=== PATIENT | female | born 1970 | race Two or more races ===

== ENCOUNTER → 2016-10-04 | Outpatient (CLI) | payer BC ==
[2016-10-04 14:18] LABS: CHLORIDE,CL 105 mmol/L (98-110); SODIUM,NA 139 mmol/L (136-146)
== END ==
LOC: MW.CHFP 13:36
PROVIDERS: ATTEND Physician Assistant
DX: R53.83 Other fatigue (principal); E11.9 Type 2 diabetes mellitus without complications
CPT/HCPCS: 36415; 80048; 80061; 82044; 83036; 84443

== ENCOUNTER → 2016-10-11 | Outpatient (CLI) | payer BC | LOC: MW.CHFP 14:50 | PROVIDERS: ATTEND Physician Assistant | DX: R50.9 Fever, unspecified (principal) | CPT/HCPCS: 87804 ==

== ENCOUNTER 2020-05-16 10:51 | Day surgery (SDC) | payer BC ==
[~2020-05-16 10:51] MED LIST: Bupivacaine 0.5% 30 ML SDV ONE; Dexamethasone 4 MG/ML 5 ML MDV ONE; Glycopyrrolate 0.2 MG/ML SDV ONE; Ketorolac 30 MG/ML SDV ONE; Lactated Ringers 1,000 ML IV SCH; Lidocaine 2% 5 ML SDV ONE; Midazolam 1 MG/ML 2 ML SDV ONE; Ondansetron 4 MG/2 ML SDV ONE; Propofol 200 MG/20 ML SDV ONE; Rocuronium Bromide 50 MG/5 ML Syringe ONE; Sodium Chloride 0.9% 20 ML ONE; ceFAZolin 2 GM in Premix Bag 1 BAG IV SCH; fentaNYL 100 MCG/2 ML SDV ONE
--- NOTE | 2020-05-16 11:23 | PCM.PREANE ---
Preanesthetic Assessment - Anesthesia/Transfusion/Family Hx Anesthesia History: Prior Anesthesia Without Reaction Other Type of Anesthesia Reaction Comment: Denies any known problem w/ anesthesia in past, no known fmly hx prblm Family History of Anesthesia Reaction: No Transfusion History: No Prior Transfusion(s) - Review of Systems General: No Symptoms Pulmonary: No Symptoms Cardiovascular: No Symptoms Gastrointestinal: No Symptoms Neurological: No Symptoms Other: Reports: None - Physical Assessment NPO Status Date: 05/15/20 Vital Signs: Last Vital Signs Temp 96.8 F L 05/16/20 10:55 Pulse 79 05/16/20 10:55 Resp 16 05/16/20 10:55 BP 127/74 05/16/20 10:55 Pulse Ox 97 05/16/20 10:55 Height: 5 ft 7 in Weight: 77.111 kg ASA Class: 2 Mental Status: Alert & Oriented x3 Airway Class: Mallampati = 2 Dentition: Reports: Normal Dentition ROM/Head Extension: Full Lungs: Clear to Auscultation, Normal Respiratory Effort Cardiovascular: Regular Rate, Regular Rhythm - Allergies Allergies/Adverse Reactions: Allergies Allergy/AdvReac Type Severity Reaction Status Date / Time No Known Allergies Allergy Verified 05/12/20 09:18 - Blood Blood Available: No - Anesthesia Plan Pre-Op Medication Ordered: None - Acknowledgements Anesthesia Type Planned: General Anesthesia Pt an Appropriate Candidate for the Planned Anesthesia: Yes Alternatives and Risks of Anesthesia Discussed w Pt/Guardian: Yes Pt/Guardian Understands and Agrees with Anesthesia Plan: Yes Additional Comments: PLAN: GET for intraoperative anesthesia, interscalene plexus block for post op pain management PreAnesthesia Questionnaire HEENT History: Reports: Impaired Vision Other HEENT History: wears glasses Cardiovascular History: Reports: None Respiratory History: Reports: None Gastrointestinal History: Reports: Cholelithiasis Genitourinary History: Reports: None Musculoskeletal History: Reports: Fracture Other Musculoskeletal History: right leg Neurological History: Reports: None Psychiatric History: Reports: None Endocrine/Metabolic History: Reports: None Hematologic History: Reports: None Oncologic (Cancer) History: Reports: Breast Other Oncologic History: states it was stage 1 and did not need chemo or radiation Dermatologic History: Reports: None - Infectious Disease History Infectious Disease History: Reports: Chicken Pox Other Infectious Disease History: when a child - Past Surgical History Head Surgeries/Procedures: Reports: None HEENT Surgical History: Reports: None Cardiovascular Surgical History: Reports: None Respiratory Surgical History: Reports: None GI Surgical History: Reports: Cholecystectomy Female Surgical History: Reports: Breast Biopsy, Hysterectomy Neurological Surgical History: Reports: None Other Musculoskeletal Surgeries/Procedures:: ORIF right LE Oncologic Surgical History: Reports: Biopsy of Breast - SUBSTANCE USE Tobacco Use Status *Q: Never Tobacco User - HOME MEDS Home Medications: Home Meds Amitriptyline [Elavil] 25 mg PO BEDTIME PRN 05/12/20 [History] traMADol [Ultram] 1 tab PO ASDIRECTED PRN 05/12/20 [History] - CURRENT (IN HOUSE) MEDS Current Meds: Current Medications Lactated Ringer's (Ringers, Lactated) 1,000 mls @ 100 mls/hr IV ASDIRECTED ALEX Cefazolin Sodium/Dextrose 2 gm (/ Premix) 50 mls @ 100 mls/hr IV ONCALL ALEX Discontinued Medications Bupivacaine HCl (Marcaine 0.5%) Confirm Administered Dose 30 ml .ROUTE .STK-MED ONE Stop: 05/16/20 10:17 Dexamethasone (Dexamethasone) Confirm Administered Dose 20 mg .ROUTE .STK-MED ONE Stop: 05/16/20 10:17 Fentanyl (Sublimaze) Confirm Administered Dose 100 mcg .ROUTE .STK-MED ONE Stop: 05/16/20 10:13 Fentanyl (Sublimaze) Confirm Administered Dose 100 mcg .ROUTE .STK-MED ONE Stop: 05/16/20 10:32 Glycopyrrolate (Robinul) Confirm Administered Dose 0.8 mg .ROUTE .STK-MED ONE Stop: 05/16/20 10:34 Sodium Chloride (Normal Saline) Confirm Administered Dose 20 mls @ as directed .ROUTE .STK-MED ONE Stop: 05/16/20 10:19 Ketorolac Tromethamine (Toradol) Confirm Administered Dose 30 mg .ROUTE .STK-MED ONE Stop: 05/16/20 10:34 Lidocaine (Xylocaine-Mpf 2%) Confirm Administered Dose 5 ml .ROUTE .STK-MED ONE Stop: 05/16/20 10:34 Midazolam HCl (Versed 1 Mg/Ml) Confirm Administered Dose 4 mg .ROUTE .STK-MED ONE Stop: 05/16/20 10:13 Ondansetron HCl (Zofran) Confirm Administered Dose 4 mg .ROUTE .STK-MED ONE Stop: 05/16/20 10:34 Propofol (Diprivan 20 Ml) Confirm Administered Dose 200 mg .ROUTE .STK-MED ONE Stop: 05/16/20 10:32 Rocuronium [place] (Rocuronium [place]) Confirm Administered Dose 50 mg .ROUTE .STK-MED ONE Stop: 05/16/20 10:34
[2020-05-16] MEDS ORDERED: Phenylephrine 1% 10 MG/ML SDV ONE (12:25)
[2020-05-16] MEDS ORDERED: Sodium Chloride 0.9% 20 ML ONE (12:28)
[2020-05-16] MEDS ORDERED: ceFAZolin 1 GM Vial ONE (12:28)
[2020-05-16] MEDS ORDERED: fentaNYL 100 MCG/2 ML SDV ONE (12:45)
[2020-05-16] MEDS ORDERED: Acetaminophen 1,000 MG in Premix Bag 1 BAG IV PRN (12:59)
--- NOTE | 2020-05-16 12:59 | PCM.PRNOTE ---
- Free Text/Narrative Note: Anes Note R ISB for post op pain management. R IS groove identified and prepped with chloroprep. Using ultrasound and Nerve stimulator an excellent bicep twitch down to 0.8 mA was observed. 27 cc 0.5% bupivicaine with 8 mg decadron was slowly and cautiously injected. Patient reports numbness and analgesia r shoulder. A Right sided horrners syndrome was also noted. Time with patient [id number] Narendra Lopez [employer]
[2020-05-16] MEDS ORDERED: Labetalol 100 MG/20 ML MDV ONE (13:04)
[2020-05-16] MEDS ORDERED: Vancomycin 1 GM SDV ONE (14:10)
[2020-05-16] MEDS ORDERED: Sugammadex Sodium 200 MG/2 ML VIAL ONE (14:21)
--- NOTE | 2020-05-16 14:30 | PCM.OPNOTE ---
- General Post-Op/Procedure Note Date of Surgery/Procedure: 05/16/20 Operative Procedure(s): r shoulder arthroscopy. r labral debridement. r shoulder partial bursectomy. open right rotator cuff repair Pre Op Diagnosis: right rotator cuff tear. right shoulder impingement Post-Op Diagnosis: Same Anesthesia Technique: General ET Tube, Regional Block Primary Surgeon: Alfredo Garcia EBL in mLs: 50 Condition: Good
[2020-05-16] MEDS: fentaNYL 100 MCG/2 ML SDV IVPUSH PRN ×2 (14:56→15:04)
--- NOTE | 2020-05-16 15:22 | PCM.POSTAN ---
POST ANESTHESIA ASSESSMENT - MENTAL STATUS Mental Status: Alert, Oriented - VITAL SIGNS Vital Signs: Last Vital Signs Temp 36.0 C L 05/16/20 10:55 Pulse 96 05/16/20 15:13 Resp 16 05/16/20 15:13 BP 146/84 H 05/16/20 15:13 Pulse Ox 95 05/16/20 15:13 - RESPIRATORY Respiratory Status: Respiratory Rate WNL, Airway Patent, O2 Saturation Stable - CARDIOVASCULAR CV Status: Pulse Rate WNL, Blood Pressure Stable - GASTROINTESTINAL GI Status: No Symptoms - PAIN Pain Score: 2 - POST OP HYDRATION Hydration Status: Adequate & Stable - OBSERVATIONS Free Text/Narrative:: The patient tolerated the procedure well. There were no apparent anesthetic complications at this time. Discharge to phase 2 per criteria.
[2020-05-16 16:57] VITALS: BP 127/83
[2020-05-16 17:52] VITALS: PULSE 102
--- NOTE | 2020-05-16 17:52 | PCM48HPAN ---
Post Anesthesia Note - EVALUATION WITHIN 48HRS OF ANESTHETIC Vital Signs in Normal Range: Yes Patient Participated in Evaluation: Yes Respiratory Function Stable: Yes (Some hoarseness due to IS block. Deep breathes and swallows well.) Airway Patent: Yes (Slight hoarseness. No dysphagia.) Cardiovascular Function Stable: Yes Hydration Status Stable: Yes Pain Control Satisfactory: Yes (09/17. Sore) Nausea and Vomiting Control Satisfactory: Yes Mental Status Recovered: Yes (A&O x3) Vital Signs: Last Vital Signs Temp 35.9 C L 05/16/20 15:18 Pulse 104 H 05/16/20 16:48 Resp 16 05/16/20 16:48 BP 127/83 05/16/20 16:48 Pulse Ox 94 L 05/16/20 16:48 - COMMENTS/OBSERVATIONS Free Text/Narrative:: Doing well. VSS. Pain control adequate. Ready for discharge. Instructions given.
--- NOTE | 2020-05-16 21:25 | OR ---
SURGEON: Alfredo Garcia DATE OF PROCEDURE: 05/16/2020 PREOPERATIVE DIAGNOSES: Right shoulder rotator cuff tear and right shoulder impingement. POSTOPERATIVE DIAGNOSES: Right rotator cuff tear, right shoulder impingement, right degenerative labral tear, superior. PROCEDURES: Right shoulder arthroscopy, right labral debridement, right shoulder partial bursectomy, and open right rotator cuff repair. PRIMARY SURGEON: Alfredo Garcia DO ANESTHESIA: General endotracheal intubation plus regional block. FLUID: Lactated Ringer solution. ESTIMATED BLOOD LOSS: 50 mL. COMPLICATION: None. SPECIMEN: None. DISCHARGE DISPOSITION: Stable to PACU. HISTORY AND INDICATIONS FOR THE PROCEDURE: The patient was seen preoperatively by me in the clinic. She had nonoperative treatment with physical therapy. She had felt a pop in her right shoulder. Preoperative imaging confirmed the above-mentioned diagnosis. Risks and goals of the procedure were explained to the patient. Informed consent was obtained. DETAILS OF THE PROCEDURE: The patient was seen preoperatively by me and the anesthesia staff in the preoperative holding area. The operative site was marked. She was brought to the operative suite by anesthesia staff after performing a regional block. She was given general anesthesia. She was placed into a beach chair position. All extremities were found to be well padded. The neck was flexed and turned slightly to the left. The patient's right upper extremity was then prepped and draped in a sterile manner. Time-out was called, identifying the correct patient, the correct procedure, correct side, and that antibiotics had been given within appropriate period of time. A posterior portal was then made. The trocar was inserted. The glenohumeral joint was insufflated using the pump under pressure. Outflow was then used too. The joint was visualized. There was a superior labral tear present. The biceps tendon appeared to be in good repair. No glenohumeral arthritis was visualized. The rotator cuff tear was visualized superiorly. The superior glenoid labral tear was then debrided and shaved and then stabilized with an ablation unit. This was done with an anterior portal. The lateral portal was then made with a 15 blade and trocar was used to go through the posterior portal and subacromial space. The shaver was then put through the lateral portal. Partial bursectomy was then performed. The acromion was visualized, which was found to be between a type 1 and type 2, so it was left alone. I then removed my instruments from the subacromial space and then closed the anterior and posterior portals with 3- 0 nylon. We then prepped again. We did not change the drapes. I then made a saber incision just lateral to the acromion in a horizontal fashion down through the subcutaneous fat. Bleeding was controlled with Bovie electrocautery. I then used for retraction and then went through the [place]he between the anterior and medial deltoid, which split very nicely. I then used the Gelpi for retraction. I then removed part of the bursa. The rotator cuff tear was easily visualized. It extended from its most anterior portion distally about 1.5 cm and was retracted about 1.5 cm as well as confirmed on the MRI. I placed my anchors and then using a free needle went through all 4 strands and then tied this. The bone was soft and that anchor did not hold, so I did use those strands later. I placed another anchor and then placed 4 more strands and ran it across the cuff tear. What was interesting about this cuff tear was not only was it removed from the footprint, but there was also an anterior-posterior tear through the rotator cuff as well, and so I went through both areas at the footprint and the portion between its proximal and distal insertion sites. This held nicely. I then inserted my 4.5 mm anchors, but the bone was so soft that it would not hold. I tried this again and it did not hold. So at that point in time, I decided to run my strands with a free needle directly through the bone and then tied these, and this held. I then felt the cuff and did external rotation. I felt that we could improve this by adding another Iconix anchor anteriorly, which I did, running all through 4 strands. These were FiberTape rather than FiberWire type strands, and then I tied these down. This approximated it quite nicely, and I felt we had a good repair that was safe considering the softness of the bone. We then irrigated copiously with Betadine- infused irrigation. I did apply 0.5 g of vancomycin directly over the cuff. I then closed the deltoid with 0 Stratafix, and then I irrigated again over the deltoid with Betadine-infused irrigation, placed other 0.5 g of vancomycin powder, then closed subcutaneously with 0 Stratafix followed by naveed. We then covered the wounds with Betadine-soaked Adaptic, 4x4s, and Medipore tape. She was then placed into the sling. The patient was allowed to awaken from general anesthesia and taken to PACU in stable condition. [id number] / MODL /[id number]
== END 2020-05-16 18:00 | disposition home or self-care (01) ==
LOC: MW.SDS 10:51
PROVIDERS: ATTEND Orthopaedic Surgery
DX: M75.101 Unspecified rotator cuff tear or rupture of right shoulder, not specified as traumatic (principal); M25.811 Other specified joint disorders, right shoulder; Z79.899 Other long term (current) drug therapy
CPT/HCPCS: 23412; 29823; J0131; J0690; J1100; J1885; J2001; J2250; J2370; J2405; J2704; J3010; J3370; J3490; J7120; C1713; C1776

== ENCOUNTER 2021-03-17 11:48 | Emergency (ER) | payer BC, OTHER ==
[2021-03-17] MEDS ORDERED: methylPREDNISolone Sodium Succinate 125 MG/2 ML SDV IM ONE (13:23)
[2021-03-17] MEDS ORDERED: Orphenadrine 60 MG/2 ML Inj IM ONE (13:23)
[2021-03-17] MEDS ORDERED: Ketorolac 60 MG/2 ML SDV IM ONE (13:23)
--- NOTE | 2021-03-17 13:46 | EDM.PDOC ---
ED HPI GENERAL MEDICAL PROBLEM - General Chief Complaint: Back Pain or Injury Stated Complaint: BACK PAIN Time Seen by Provider: 03/17/21 13:10 Source of Information: Reports: Patient History Limitations: Reports: No Limitations - History of Present Illness INITIAL COMMENTS - FREE TEXT/NARRATIVE: HISTORY AND PHYSICAL: History of present illness: Patient is a 50-year-old female who presents to the emergency room with complaints of thoracic back pain. She states she has chronic shoulder pain, has had a rotator cuff repair on the right and is due to have further imaging with possible repair of the left shoulder. She states she does occasionally get thoracic back pain due to her chronic shoulder pain, yesterday pain worsened more than usual. She denies any injury, trauma or falls. Denies any numbness, tingling, saddle paresthesias. Describes the pain as sharp sending spasms up her trapezius muscle and down her back. She does have some leftover oxycodone from her shoulder replacement but states this makes her drowsy and does not alleviate her pain. She does have an appointment with Dr. Sousa on March 20. Patient denies any fever, chills, headache, change in vision, syncope or near syncope. Denies any chest pain, shortness of breath or cough. Denies any abdominal pain, nausea, vomiting, diarrhea, constipation or dysuria. Has not noted any blood in urine or stool. Patient has been eating and drinking appropriately. Review of systems: As per history of present illness and below otherwise all systems reviewed and negative. Past medical history: As per history of present illness and as reviewed below otherwise noncontributory. Surgical history: As per history of present illness and as reviewed below otherwise noncontributory. Social history: See social history for further information Family history: As per history of present illness and as reviewed below otherwise noncontributory. Physical exam: General: Well developed and well nourished 50-year-old female. Alert and orientated x 3. Nontoxic in appearance and in no acute distress. Vital signs are stable and have been reviewed by me. Nursing notes were reviewed. HEENT: Atraumatic, normocephalic, pupils equal and reactive bilaterally, negative for conjunctival pallor or scleral icterus, mucous membranes moist, trachea midline. No drooling or trismus noted. No meningeal signs. No hot potato voice noted. Lungs: Clear to auscultation bilaterally. No wheezes, rales, or rhonchi. Normal work of breathing, no accessory muscles used. Heart: S1S2, regular rate and rhythm without overt murmur, gallops, or rubs. No JVD. No peripheral edema Abdomen: Soft, nondistended, nontender. Normoactive bowel sounds. Negative for masses or costovertebral tenderness. Pelvis: Stable nontender. C-spine/Back: No pinpoint vertebral tenderness upon palpation. No crepitus, step-offs or obvious deformities. Muscular tenderness to bilateral paraspinous in the thoracic region. Patient is ambulatory into the emergency room without difficulty or deficit. Able to rock back on heels and walk on toes. Denies any urinary or fecal incontinence. Denies any numbness, tingling or saddle pares thesia. No concerns of serious infection, fracture or cord compression, or cauda equina syndrome. Deep tendon reflexes brisk bilaterally. Skin: Intact, warm, dry. No lesions or rashes noted. Hematologic: No petechiae or purpra. Mucosa appropriate color and normal nail bed color and refill. Extremities: Atraumatic, moves all extremities per self without difficulty or deficits. Neurovascular unremarkable. Neuro: Awake, alert, oriented. Cranial nerves II through XII unremarkable. Cerebellum unremarkable. Motor and sensory unremarkable throughout. Exam nonfocal. Psychiatric: Mood and affect are appropriate. Normal thought process. Answering questions appropriately. Please note that the patient was seen and evaluated during the 2019 SARS-CoV-2 novel coronavirus pandemic period. Community viral transmission is ongoing at time of this encounter and the emergency department is operating under pandemic response procedures. Medical Decision Making: Patient is a 50-year-old female who presents to the emergency room with complaints of thoracic back pain. We discussed imaging, she states she would prefer an MRI as she needs on of the left shoulder anyway. She is made aware that we are unable to perform these type of MRIs through the emergency room unless considered emergent. She does have an appointment on Tuesday in which they were given a discussed MRI needs. We will not do any imaging today as she has not had any injury, trauma or falls. She does have full range of motion and denies any neurological deficits. We will give her IM injection and reassess. Patient does feel some improvement. I have talked with the patient about today's findings, in addition to providing specific details for plan of care. Reassessment at the time of disposition demonstrates that the patient is in no acute distress. The patient is stable for discharge, counseling was provided and we discussed in great detail signs and symptoms that would prompt them to return to the Emergency Department. Medication, follow up and supportive care measures were reviewed and discussed. Voices understanding and is agreeable to plan of care. Denies any further questions or concerns at this time. Diagnostics: None Therapeutics: Norflex, Toradol Prescription: Flexeril, diclofenac Impression: Muscular strain Plan: 1. The medication you received today does cause drowsiness, so do not drive for the remaining day 2. When resting please lay on a flat firm surface. Limit your immobility to prevent muscle stiffness. Get up to ambulate/move around/gentle stretching multiple times throughout the day. May alternate heat and ice to the painful areas 3. Tylenol as needed for back pain. Otherwise take the prescribed Flexeril and diclofenac as directed. Diclofenac is an anti-inflammatory so do not take any additional NSAIDs with this medication, such as ibuprofen or Aleve. Flexeril as a muscle relaxant, this medication may cause drowsiness a do not take it will driving her needing to be functioning outside of the house. 4. Please follow-up with your primary care provider as we discussed. If your symptoms should worsen, new symptoms develop or any of the signs and symptoms we discussed should arise please return to the emergency room or call 911 (if needed). Definitive disposition and diagnosis as appropriate pending reevaluation and review of above. - Related Data Allergies Allergy/AdvReac Type Severity Reaction Status Date / Time No Known Allergies Allergy Verified 03/17/21 13:16 Home Meds: Home Meds oxyCODONE HCl/Acetaminophen [Oxycodone-Acetaminophen 5-325] 1 each PO Q6HR PRN #56 tablet 05/16/20 [Rx] Cyclobenzaprine [Flexeril] 10 mg PO TID PRN #21 tab 03/17/21 [Rx] Diclofenac Sodium [Voltaren] 75 mg PO BIDMEALS PRN #30 tab.cr 03/17/21 [Rx] metFORMIN [Glucophage XR] 1 tab PO BID 03/17/21 [History] Past Medical History HEENT History: Reports: Impaired Vision Other HEENT History: wears glasses Cardiovascular History: Reports: None Respiratory History: Reports: None Gastrointestinal History: Reports: Cholelithiasis Genitourinary History: Reports: None Musculoskeletal History: Reports: Fracture Other Musculoskeletal History: right leg Neurological History: Reports: None Psychiatric History: Reports: None Endocrine/Metabolic History: Reports: None, Diabetes, Type II Hematologic History: Reports: None Oncologic (Cancer) History: Reports: Breast Other Oncologic History: states it was stage 1 and did not need chemo or radiation Dermatologic History: Reports: None - Infectious Disease History Infectious Disease History: Reports: Chicken Pox Other Infectious Disease History: when a child - Past Surgical History Head Surgeries/Procedures: Reports: None HEENT Surgical History: Reports: None Cardiovascular Surgical History: Reports: None Respiratory Surgical History: Reports: None GI Surgical History: Reports: Cholecystectomy Female Surgical History: Reports: Breast Biopsy, Hysterectomy Neurological Surgical History: Reports: None Musculoskeletal Surgical History: Reports: Shoulder Surgery Other Musculoskeletal Surgeries/Procedures:: ORIF right LE Oncologic Surgical History: Reports: Biopsy of Breast Social & Family History - Family History Family Medical History: No Pertinent Family History - Tobacco Use Tobacco Use Status *Q: Never Tobacco User - Recreational Drug Use Recreational Drug Use: No ED ROS GENERAL - Review of Systems Review Of Systems: Comprehensive ROS is negative, except as noted in HPI. ED EXAM, UPPER BACK/NECK PAIN - Physical Exam Exam: See Below (See dictation) Course - Vital Signs Last Recorded V/S: Last Vital Signs Temp 96.6 F L 03/17/21 13:13 Pulse 81 03/17/21 13:13 Resp 18 03/17/21 13:13 BP Pulse Ox 98 03/17/21 13:13 - Orders/Labs/Meds Meds: Medications Discontinued Medications Generic Name Dose Route Start Last Admin Trade Name Ashley PRN Reason Stop Dose Admin Ketorolac Tromethamine 60 mg 03/17/21 13:23 03/17/21 13:34 Ketorolac 60 Mg/2 Ml Sdv IM 03/17/21 13:24 60 mg ONETIME ONE Administration Methylprednisolone Sodium Succinate 125 mg 03/17/21 13:23 03/17/21 13:33 Methylprednisolone Sodium Succinate 125 Mg/2 Ml Sdv IM 03/17/21 13:24 125 mg ONETIME ONE Administration Orphenadrine Citrate 60 mg 03/17/21 13:23 03/17/21 13:34 Orphenadrine 60 Mg/2 Ml Inj IM 03/17/21 13:24 60 mg ONETIME ONE Administration Departure - Departure Time of Disposition: 13:45 Disposition: Home, Self-Care 01 Clinical Impression: Muscle strain of upper back - Discharge Information Prescriptions: Cyclobenzaprine [Flexeril] 10 mg PO TID PRN #21 tab PRN Reason: Muscle Spasm Diclofenac Sodium [Voltaren] 75 mg PO BIDMEALS PRN #30 tab.cr PRN Reason: Pain Instructions: Muscle Strain, [id number] Referrals: Blu Sousa MD [Primary Care Provider] - Forms: ED Department Discharge Additional Instructions: The following information is given to patients seen in the emergency department who are being discharged to home. This information is to outline your options for follow-up care. We provide all patients seen in our emergency department with a follow-up referral. The need for follow-up, as well as the timing and circumstances, are variable depending upon the specifics of your emergency department visit. If you don't have a primary care physician on staff, we will provide you with a referral. We always advise you to contact your personal physician following an emergency department visit to inform them of the circumstance of the visit and for follow-up with them and/or the need for any referrals to a consulting specialist. The emergency department will also refer you to a specialist when appropriate. This referral assures that you have the opportunity for follow-up care with a specialist. All of these measure are taken in an effort to provide you with optimal care, which includes your follow-up. Under all circumstances we always encourage you to contact your private physician who remains a resource for coordinating your care. When calling for follow-up care, please make the office aware that this follow-up is from your recent emergency room visit. If for any reason you are refused follow-up, please contact the [facility] Emergency Department at and asked to speak to the emergency department charge nurse. [facility] [address] [place] [id number] [address] [id number] Thank you for choosing the [facility] emergency department in [place] for your medical needs today. It was a pleasure caring for you. Today you were seen in the emergency department for back pain. 1. The medication you received today does cause drowsiness, so do not drive for the remaining day 2. When resting please lay on a flat firm surface. Limit your immobility to prevent muscle stiffness. Get up to ambulate/move around/gentle stretching multiple times throughout the day. May alternate heat and ice to the painful areas 3. Tylenol as needed for back pain. Otherwise take the prescribed Flexeril and diclofenac as directed. Diclofenac is an anti-inflammatory so do not take any additional NSAIDs with this medication, such as ibuprofen or Aleve. Flexeril as a muscle relaxant, this medication may cause drowsiness a do not take it will driving her needing to be functioning outside of the house. 4. Please follow-up with your primary care provider as we discussed - Keep your appointment with Dr Sousa for Tuesday. If your symptoms should worsen, new symptoms develop or any of the signs and symptoms we discussed should arise please return to the emergency room or call 911 (if needed). Sepsis Event Note (ED) - Focused Exam Vital Signs: Vital Signs Temp Pulse Resp Pulse Ox 03/17/21 13:13 96.6 F L 81 18 98
[2021-03-17 14:30] VITALS: BP 128/93; PULSE 72
== END 2021-03-17 14:00 | disposition home or self-care (01) ==
LOC: MW.ED 11:48
DX: S29.012A Strain of muscle and tendon of back wall of thorax, initial encounter (principal); E11.9 Type 2 diabetes mellitus without complications; Z79.84 Long term (current) use of oral hypoglycemic drugs; X58.XXXA Exposure to other specified factors, initial encounter
CPT/HCPCS: 96372; 99283; J1885; J2360; J2930